=== PATIENT | female | born 1995 | race Caucasian/White ===

== ENCOUNTER 2019-07-08 16:03 | Inpatient (IN) | payer SELFPAY ==
[~2019-07-08] VITALS: Ht 172.7 cm; Wt 68.0 kg
--- NOTE | 2019-07-08 16:48 | NUR ---
[id number] STROKE BAND NUMBER
[2019-07-08 16:50] LABS: BASOPHILS 0.4 % (0-2); EOSINOPHILS 1.4 % (0-7); HEMATOCRIT 42.5 % (36.0-48.0); HEMOGLOBIN 13.1 g/dL (12-16); IMMATURE GRANULOCYTES 0.1 % (0-5); LYMPHOCYTES 29.6 % (15-50); MCH 28.4 pg (26.0-34.0); MCHC 30.8 g/dL (31.0-37.0); MEAN PLATELET VOLUME 10.9 fL (7.4-10.4); MONOCYTES 8.3 % (2-11); NEUTROPHILS 60.2 % (40-80); PLATELET COUNT 293 10x3/uL (130-400); RBC 4.62 10x6/uL (4.00-5.40); RDW 14.4 % (11.5-14.5); WBC 7.7 10x3/uL (4.8-10.8)
[2019-07-08 17:07] LABS: APTT 30.1 SECONDS (22.8-39.4); INR 1.07 (0.85-1.17); PROTIME 13.9 SECONDS (11.6-15.0)
[2019-07-08 17:12] LABS: CALC OSMOLALITY 272 mosm/kg (275-300); CALCIUM 8.7 mg/dL (8.5-10.1); CARBON DIOXIDE 25.2 mmol/L (21.0-32.0); CHLORIDE - SERUM 104 mmol/L (98-107); CREATININE - SERUM 0.8 mg/dL (0.6-1.3); GLUCOSE 82 mg/dL (74-106); POTASSIUM - SERUM 3.6 mmol/L (3.5-5.1); SODIUM 138 mmol/L (136-145); UREA NITROGEN 8 mg/dL (7-18); eGFR NON AFRICAN AMERICAN > 90 mL/min (90-120)
[2019-07-08 17:28] LABS: ALBUMIN 3.8 g/dL (3.4-5.0); ALKALINE PHOSPHATASE 50 U/L (30-120); ALT (SGPT) 25 U/L (10-68); BILIRUBIN - TOTAL 0.68 mg/dL (0.2-1.3); CKMB 0.2 U/L (0.0-3.6); CREATINE KINASE 76 UL (21-215); MAGNESIUM - SERUM 1.8 mg/dL (1.8-2.4); PROTEIN - SERUM 7.7 g/dL (6.4-8.2); THYROID STIMULATING HORMONE 1.24 uIU/mL (0.36-3.74)
[2019-07-08 17:29] LABS: TROPONIN-I < 0.017 ng/mL (0.000-0.060)
--- NOTE | 2019-07-08 20:15 | NUR ---
PT ASSISTED TO BEDSIDE COMMODE.
[2019-07-09] VITALS: BP 127/70
[2019-07-09 00:51] VITALS: BMI 22.8
[2019-07-09] MEDS ORDERED: BUPROPION HCL150 M1 PO (01:41)
[2019-07-09] MEDS ORDERED: ZOLOFT100 MG PO (01:43)
[2019-07-09 04:00] VITALS: BP 114/60
[2019-07-09 04:28] LABS: BASOPHILS 0.4 % (0-2); EOSINOPHILS 1.4 % (0-7); HEMATOCRIT 39.5 % (36.0-48.0); HEMOGLOBIN 12.2 g/dL (12-16); IMMATURE GRANULOCYTES 0.1 % (0-5); LYMPHOCYTES 26.3 % (15-50); MCH 28.2 pg (26.0-34.0); MCHC 30.9 g/dL (31.0-37.0); MCV 91.2 fL (80.0-100.0); MEAN PLATELET VOLUME 11.1 fL (7.4-10.4); MONOCYTES 7.5 % (2-11); NEUTROPHILS 64.3 % (40-80); PLATELET COUNT 245 10x3/uL (130-400); RBC 4.33 10x6/uL (4.00-5.40); RDW 14.3 % (11.5-14.5); WBC 8.1 10x3/uL (4.8-10.8)
[2019-07-09 04:43] LABS: APTT 30.4 SECONDS (22.8-39.4); INR 1.28 (0.85-1.17); PROTIME 15.9 SECONDS (11.6-15.0)
[2019-07-09 05:05] LABS: CALC OSMOLALITY 274 mosm/kg (275-300); CALCIUM 7.8 mg/dL (8.5-10.1); CARBON DIOXIDE 23.5 mmol/L (21.0-32.0); CHLORIDE - SERUM 106 mmol/L (98-107); CKMB 0.2 U/L (0.0-3.6); CREATINE KINASE 56 UL (21-215); GLUCOSE 86 mg/dL (74-106); MAGNESIUM - SERUM 1.7 mg/dL (1.8-2.4); PHOSPHOROUS 3.3 mg/dL (2.5-4.9); POTASSIUM - SERUM 3.5 mmol/L (3.5-5.1); PRO BNP 27 pg/mL (0-125); SODIUM 139 mmol/L (136-145); TROPONIN-I < 0.017 ng/mL (0.000-0.060); UREA NITROGEN 6 mg/dL (7-18)
[2019-07-09 05:10] LABS: CREATININE - SERUM 0.5 mg/dL (0.6-1.3); eGFR NON AFRICAN AMERICAN > 90 mL/min (90-120)
[2019-07-09 07:54] VITALS: BP 125/69
--- NOTE | 2019-07-09 11:34 | NUR ---
Rehab Note- Acute Inpatient Rehab prescreen order received. The patient is private pay per facesheet, will f/u with business office. The patient also continues to have an acute work up at this time. Will follow at this time for accurate payer source for possible acute inpatient rehab benefits. Thank you for this referral! Robyn Romero RN Clinical Liaison, [facility] Rehab
--- NOTE | 2019-07-09 11:52 | NUR ---
Notified by nurse caring for the patient that on 07/08/2019 TNKase 8.9 mg bolus was administered at 1703, 1704 80.1 mg drip was initiated and 11 mg was wasted.
[2019-07-09 12:06] VITALS: BP 103/52
[2019-07-09 12:38] VITALS: Ht 172.7 cm; Wt 68.0 kg
[2019-07-09 13:20] LABS: UDS - AMPHET NEGATIVE QUAL (NEGATIVE); UDS - BARB POSITIVE QUAL (NEGATIVE); UDS - BENZO NEGATIVE QUAL (NEGATIVE); UDS - COCAINE NEGATIVE QUAL (NEGATIVE); UDS - OPIATE NEGATIVE QUAL (NEGATIVE); UDS - PCP NEGATIVE QUAL (NEGATIVE); UDS - THC NEGATIVE QUAL (NEGATIVE)
[2019-07-09 13:46] LABS: BILIRUBIN NEGATIVE (NEGATIVE); GLUCOSE NEGATIVE (NEGATIVE); KETONE SMALL mg/dL (NEGATIVE); NITRITE NEGATIVE (NEGATIVE); SPECIFIC GRAVITY 1.005 (1.005-1.020); UROBILINOGEN NORMAL (NORMAL)
[2019-07-09 13:47] LABS: BACTERIA MODERATE /hpf (NEGATIVE); RED CELLS - URINE RARE /hpf (0-5); WHITE CELLS - URINE 0-5 /hpf (NEGATIVE)
--- NOTE | 2019-07-09 14:16 | NUR ---
Rehab Note- Spoke with Zunilda with billing and she is currently investigating the patient's payer source at this time. Will continue to follow at this time. Robyn Romero RN CLinical Liaison, [facility] Rehab
[2019-07-09 15:44] VITALS: BP 107/65
--- NOTE | 2019-07-09 17:10 | NUR ---
NIHSS COMPLETED AT BEDSIDE, PATIENT WITH SCORE OF ZERO, NO DEFICITS NOTED. DR. SINHA AT BEDSIDE AND NOTIFIED OF NIHSS RESULT.
[2019-07-09 18:32] LABS: ERYTHROCYTE SEDIMENTATION RATE 4 mm/hr (0-20)
[2019-07-09 21:44] VITALS: BP 106/56
--- NOTE | 2019-07-09 23:58 | NUR ---
REC'D IN BED WATCHING TV.STATES FEELS MUCH BETTER TODAY THAN YESTERDAY.STATES RIGHT ARM AND LEG REMAINS LITTLE WEAK SENIOR REPORT DEVELOPER RIGHT HAND WEAK STILL. DENIES BLURRED OR DOUBLE VISION.WILL CONTINUE TO MONITOR FOR ANY CHGES IN NEUROVASCULAR STATUS AND FOLLOW CURRENT PLAN OF CARE.
[2019-07-10 00:50] VITALS: BP 104/53
--- NOTE | 2019-07-10 05:00 | NUR ---
I have reviewed this patient and I concur with the Shift Assessment completed by the Licensed Practical Nurse today this shift.
[2019-07-10 05:02] LABS: BASOPHILS 0.3 % (0-2); EOSINOPHILS 1.7 % (0-7); HEMATOCRIT 39.6 % (36.0-48.0); HEMOGLOBIN 12.5 g/dL (12-16); IMMATURE GRANULOCYTES 0.1 % (0-5); MCH 28.8 pg (26.0-34.0); MCHC 31.6 g/dL (31.0-37.0); MCV 91.2 fL (80.0-100.0); NEUTROPHILS 66.9 % (40-80); PLATELET COUNT 270 10x3/uL (130-400); RBC 4.34 10x6/uL (4.00-5.40); RDW 14.2 % (11.5-14.5)
[2019-07-10 05:15] LABS: CALC OSMOLALITY 270 mosm/kg (275-300); CARBON DIOXIDE 23.7 mmol/L (21.0-32.0); CHLORIDE - SERUM 104 mmol/L (98-107); CREATININE - SERUM 0.6 mg/dL (0.6-1.3); GLUCOSE 82 mg/dL (74-106); MAGNESIUM - SERUM 1.9 mg/dL (1.8-2.4); PHOSPHOROUS 2.9 mg/dL (2.5-4.9); POTASSIUM - SERUM 3.6 mmol/L (3.5-5.1); SODIUM 137 mmol/L (136-145); UREA NITROGEN 7 mg/dL (7-18); eGFR NON AFRICAN AMERICAN > 90 mL/min (90-120)
[2019-07-10 06:55] VITALS: BP 122/78
[2019-07-10 07:10] LABS: RAPID PLASMA REAGIN Non Reactive (Non Reactive)
--- NOTE | 2019-07-10 07:28 | NUR ---
PT RESTING QUIETLY IN BED. AROUSES STAFF ENTERS ROOM. RESP EVEN AND UNLABORED. IV TO LEFT HAND WITH NS @ 75ML/HR INFUSING VIA PUMP. SITE WITHOUT REDNESS OR EDEMA. DENIES FURTHER NEEDS AT THIS TIME. CL WITHIN REACH. ENCOURAGED TO CALL WITH NEEDS. CONTINUE POC
[2019-07-10 09:21] VITALS: BP 99/54
--- NOTE | 2019-07-10 09:43 | NUR ---
PT RESTING IN BED. MORNING MEDICATIONS ADMINSTERED AT THIS TIME PER MD ORDERS. PT REPORTS HEADACHE AT THIS TIME REPORTING PAIN 4/10. PAIN MEDICATION ADMINISTERED PER MD ORDERS. PT DENIES FURTHER NEEDS AT THIS TIME. CL WITHIN REACH. ENCOURAGED TO CALL WITH NEEDS.
[2019-07-10] MEDS ORDERED: PROTONIX40 MG PO (09:48)
[2019-07-10] MEDS ORDERED: ELIQUIS5 MG PO (09:48)
[2019-07-10] MEDS ORDERED: LIPITOR20 MG PO (09:48)
--- NOTE | 2019-07-10 10:19 | NUR ---
PER DOCTORS ORDERS, I CALLED THE [facility] IN [place]. NO REFILLS WHERE SPECIFIED TALKED TO AYLA BALDERAS.
--- NOTE | 2019-07-10 11:43 | MORECARE ---
CASE MANAGEMENT DISCHARGE SUMMARY PATIENT: WES HANNA UNIT: [id number] ADM DATE: 07/08/19 AGE: 23 : 95 SEX: F ROOM/BED: D.2206 AUTHOR: DESTINY,DOC PHYSICIAN: REFERRING PHYSICIAN: LIVE ESTRADA MD DATE OF SERVICE: 07/10/19 Discharge Plan Patient Name: WES HANNA Facility: [facility]:[place] : 1995 Planned Disposition: Home or Self Care Anticipated Discharge Date: Discharge Date: Expected LOS: Initial Reviewer: [email or web address] Initial Review Date: 07/08/2019 Generated: 07/10/19 12:43 pm Comments DCP- Discharge Planning Updated by [email or web address]: Cydney Villeda on 07/10/19 10:[address] Patient Name: WES HANNA Admission Status: ER Accout number: [id number] Admission Date: 07-08-2019 : 1995 Admission Diagnosis: Attending: LIVE ESTRADA Current LOS: 2 Anticipated DC Date: Planned Disposition: Home or Self Care Primary Insurance: UNINSURED DISCOUNT PLAN Discharge Planning Comments: CM met with patient to complete initial dc planning assessment. CM educated patient on the CM role and verbal consent given by patient to complete assessment. Patient lives at home with her and children where she states she is independent with her care. At discharge patient plans to return home and feels this is a safe discharge. CM discussed availability of home health, rehab services, and medical equipment. She said that she has home o2, but does not use it. 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 Patient denied known discharge needs at this time. CM will continue to follow and will assist as needed with dc plans/needs. Load Haul Dump Operator: Cydney Villeda DCPIA - Discharge Planning Initial Assessment Updated by [email or web address]: Cydney Villeda on 07/10/19 11:38 am * Is the patient Alert and Oriented? Yes * How many steps to enter\exit or inside your home? * PCP [facility] * Pharmacy [facility] IN [place] * Preadmission Environment Home with Family * ADLs Independent * Equipment Oxygen * Other Equipment HAS O2 BUT DEOS NOT USE * List name and contact numbers for known caregivers / representatives who currently or will assist patient after discharge: ANGEL HANNA [phone] * Verbal permission to speak to the caregivers and representatives has been obtained from the patient. N/A * Community resources currently utilized None * Additional services required to return to the preadmission environment? No * Can the patient safely return to the preadmission environment? Yes * Has this patient been hospitalized within the prior 30 days at any hospital? No Patient Name: WES HANNA Page [id number] at 1143 All edits/amendments must be made on the electronic document DICTATION DATE: 07/10/19 1143 DIRECTOR LABOR STANDARDS: DIONICIO 07/10/19 1143 RPT#: [id number] DC DATE: STATUS: ADM IN [facility] [address] [place] [address] END OF REPORT
--- NOTE | 2019-07-10 11:50 | NUR ---
PT RESTING QUIETLY IN BED. NO ACUTE DISTRESS NOTED AT THIS TIME. DENIES FURTHER NEEDS AT THIS TIME. CL WITHIN REACH. ENCOURAGED TO CALL WITH NEEDS.
[2019-07-10 12:09] LABS: ACLA - IGG AB <9 GPL U/mL (0-14); ACLA - IGM AB <9 MPL U/mL (0-12)
--- NOTE | 2019-07-10 13:05 | NUR ---
PT DISCHARGE PAPERWORK PROVIDED. DISCUSSED CONTINUATION OF HOME MEDICATIONS, WELL NEW PRESCRIPTIONS. INFORMED PT OF FOLLOW UP APPOINTMENTS. PT VOICES UNDERSTANDING, DENIES QUESTIONS. PT VOICES AWAITING RIDE FOR D/C.
[2019-07-10 13:45] VITALS: BP 121/74
[2019-07-10 14:08] LABS: SPE - ALBUMIN 3.3 g/dL (2.9-4.4); SPE - ALPHA-1 GLOBULIN 0.2 g/dL (0.0-0.4); SPE - ALPHA-2 GLOBULIN 0.6 g/dL (0.4-1.0); SPE - GAMMA GLOBULIN 1.4 g/dL (0.4-1.8); SPE - M-SPIKE Not Observed g/dL (Not Observed); SPE - TOTAL PROTEIN 6.6 g/dL (6.0-8.5)
--- NOTE | 2019-07-10 18:33 | MORECARE ---
CASE MANAGEMENT DISCHARGE SUMMARY PATIENT: WES HANNA UNIT: [id number] ADM DATE: 07/08/19 AGE: 23 : 95 SEX: F ROOM/BED: D.2206 AUTHOR: DESTINYDOC PHYSICIAN: REFERRING PHYSICIAN: LIVE ESTRADA MD DATE OF SERVICE: 07/10/19 Discharge Plan Patient Name: WES HANNA Facility: [facility]:[place] : 1995 Planned Disposition: Home or Self Care Anticipated Discharge Date: Discharge Date: 07/10/2019 Expected LOS: Initial Reviewer: [email or web address] Initial Review Date: 07/08/2019 Generated: 07/10/19 7:33 pm Comments DCP- Discharge Planning Updated by [email or web address]: Cydney Villeda on 07/10/19 10:[address] Patient Name: WES HANNA Admission Status: ER Accout number: [id number] Admission Date: 07-08-2019 : 1995 Admission Diagnosis: Attending: LIVE ESTRADA Current LOS: 2 Anticipated DC Date: Planned Disposition: Home or Self Care Primary Insurance: UNINSURED DISCOUNT PLAN Discharge Planning Comments: CM met with patient to complete initial dc planning assessment. CM educated patient on the CM role and verbal consent given by patient to complete assessment. Patient lives at home with her and children where she states she is independent with her care. At discharge patient plans to return home and feels this is a safe discharge. CM discussed availability of home health, rehab services, and medical equipment. She said that she has home o2, but does not use it. 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 Patient denied known discharge needs at this time. CM will continue to follow and will assist as needed with dc plans/needs. Medical Affairs Manager: Cydney Villeda DCPIA - Discharge Planning Initial Assessment Updated by [email or web address]: Cydney Villeda on 07/10/19 11:38 am * Is the patient Alert and Oriented? Yes * How many steps to enter\exit or inside your home? * PCP [facility] * Pharmacy [facility] IN [place] * Preadmission Environment Home with Family * ADLs Independent * Equipment Oxygen * Other Equipment HAS O2 BUT DEOS NOT USE * List name and contact numbers for known caregivers / representatives who currently or will assist patient after discharge: ANGEL HANNA [phone] * Verbal permission to speak to the caregivers and representatives has been obtained from the patient. N/A * Community resources currently utilized None * Additional services required to return to the preadmission environment? No * Can the patient safely return to the preadmission environment? Yes * Has this patient been hospitalized within the prior 30 days at any hospital? No Last DP export: 07/10/19 10:43 a Patient Name: WES HANNA Page [phone] at 1833 All edits/amendments must be made on the electronic document DICTATION DATE: 07/10/191832 MEDIA CLERK: DIONICIO 07/10/191832 RPT#: [id number] DC DATE:07/10/19 STATUS: DIS IN [facility] [address] [place] [address] END OF REPORT
[2019-07-11 03:06] LABS: ANTITHROMBIN III ACTIVITY 93 % (75-135); ANTITHROMBIN III ANTIGEN 78 % (72-124)
[2019-07-11 10:08] LABS: PROTEIN S - FREE 91 % (57-157); PROTEIN S - FUNCTIONAL 86 % (63-140); PROTEIN S - TOTAL 57 % (60-150)
== END 2019-07-10 17:27 | disposition home or self-care (01) | DRG 66 ==
LOC: EDBD 16:03 → D.ER 16:03 → D.MS 20:54
PROVIDERS: Emergency Medicine; Psychiatry & Neurology Neurology; ADMIT Internal Medicine Nephrology; ATTEND Internal Medicine Nephrology
DX: I63.212 Cerebral infarction due to unspecified occlusion or stenosis of left vertebral artery (principal); G43.909 Migraine, unspecified, not intractable, without status migrainosus; Z86.73 Personal history of transient ischemic attack (TIA), and cerebral infarction without residual deficits